=== PATIENT | female | born 1945 ===

== ENCOUNTER 2018-10-23 16:54 | Observation (INO) | payer OTHER, MEDICARE ==
--- NOTE | 2018-10-23 17:20 | EDPHY ---
H & P Stated Complaint: [place] - c/o rt ankle/lt knee/bilat wrist/hands Time Seen by Provider: 10/23/18 17:05 HPI/ROS: Chief Complaint: Ankle pain, knee pain status post fall HPI: 73-year-old woman had a mechanical trip and fall when she did not see a curb when she was walking to a rental car checkout counter. Patient fell landed on her left knee and twisted her right ankle. She did not hit her head. No loss of consciousness. She is complaining primarily of pain and swelling in her right ankle. She has been able to weight bear with her left leg with some pain in her knee cap. No chest pain. No abdominal pain. No other injuries. No hip pain. ROS: 10 systems were reviewed and were negative except those elements noted in the HPI. PMH: Hyperlipidemia, hypertension, hypothyroid Social History: No smoking, no alcohol, no recreational drug use Family History: non-contributory Physical Exam: Gen: Awake, Alert, No Distress HEENT: Nose: no rhinorrhea Eyes: PERRLA, EOMI Mouth: Moist mucosa Neck: Supple, no JVD Chest: nontender, lungs clear to auscultation Heart: S1, S2 normal, no murmur Abd: Soft, non-tender, no guarding Back: no CVA tenderness, no midline tenderness Ext: Upper extremities are unremarkable. Patient has an abrasion over her left patella. She has some patellar tenderness. Full range of motion. No drawer sign. Does have moderate patellar tenderness without swelling. No effusion. Right ankle: Patient has significant swelling over the lateral malleolus and in for malleolar region. No medial tenderness. She has lateral malleolar and in for malleolar tenderness, primarily along the anterior talofibular ligament. No midfoot tenderness. No deformity. Decreased range of motion secondary to pain. Capillary refills less than 2 sec bilaterally. 2+ dorsalis pedis pulses. Skin: no rash Neuro: CN II-XII intact, Sensation grossly intact, Strength 5/5 in bilateral upper and lower extremities - Personal History Current Tetanus Diphtheria and Acellular Pertussis (TDAP): Yes - Medical/Surgical History Other PMH: Pt unable to answer currently Constitutional: Initial Vital Signs Temperature (C) 36.6 C 10/23/18 17:06 Heart Rate 77 10/23/18 17:06 Respiratory Rate 20 10/23/18 17:06 Blood Pressure 161/98 H 10/23/18 17:06 O2 Sat (%) 96 10/23/18 17:06 O2 Delivery Mode Room Air Allergies/Adverse Reactions: azithromycin Allergy (Verified 10/23/18 17:03) levofloxacin [From Levaquin] Allergy (Verified 10/23/18 17:03) Sulfa (Sulfonamide Antibiotics) Allergy (Verified 10/23/18 17:03) Home Medications: Medication Instructions Recorded Aspirin 10/23/18 Atenolol 10/23/18 Atorvastatin Calcium 10/23/18 Levothyroxine 10/23/18 Medical Decision Making - Diagnostics Imaging Results: Imaging Impressions Ankle X-Ray 10/23/18 17:12 Impression: 1. Marked lateral soft tissue swelling. No definite acute fracture. 2. Tiny age indeterminate cortical chip along the anterior lateral process of the calcaneus. Query extensor digitorum brevis avulsion injury. Knee X-Ray 10/23/18 17:12 Impression: Acute nondisplaced patellar fractures; vertical and horizontal fracture planes. ED Course/Re-evaluation: X-rays noted. Patient placed in a left straight leg splint. Right ankles Velcro splint clear she has been given crutches. She has been given copies of her x-rays. Patient is unable to get up on her own or weight bear. Plan will be to discussed with the hospitalist for admission for PT and OT consultation and orthopedic evaluation. Case discussed with Dr. Barber, hospitalist. He will admit the patient to his service for further care. Departure - Departure Disposition: [facility] Inpatient Acute Clinical Impression: Patella fracture, Ankle sprain Condition: Fair Additional Instructions: Apply ice for 15 min of every hour while awake. Take ibuprofen, 600 mg every 8 hr. You may alternate with acetaminophen, 1000 mg every 8 hr. Follow up with orthopedist in 3-4 days for further evaluation. Stand Alone Forms: Airline Excuse, Statement of Treatment
[2018-10-23] MEDS ORDERED: IBUPROFEN 600 MG TAB PO ONE (17:55)
[2018-10-23] MEDS ORDERED: diphenhydrAMINE 25 MG CAP PO PRN (20:44)
[2018-10-23] MEDS ORDERED: POTASSIUM CL 10 MEQ TAB PO SCH (21:00)
[2018-10-23] MEDS ORDERED: ATORVASTATIN CALCIUM 20 MG TAB PO SCH (21:00)
[2018-10-23] MEDS ORDERED: ASPIRIN EC 81 MG TAB PO SCH (21:00)
[2018-10-23] MEDS ORDERED: LEVOTHYROXINE 75 MCG TAB PO SCH (21:00)
[2018-10-23] MEDS ORDERED: ONDANSETRON DISINTEGRATING 4 MG TAB PO PRN (21:08)
[2018-10-23] MEDS ORDERED: IBUPROFEN 200 MG TAB PO PRN (21:08)
[2018-10-23] MEDS ORDERED: ONDANSETRON 4 MG/2 ML VIAL IVP PRN (21:08)
[2018-10-23] MEDS: ACETAMINOPHEN 500 MG TAB PO SCH (22:02)
--- NOTE | 2018-10-23 22:06 | GHP ---
[f rep st] HISTORY AND PHYSICAL DATE OF ADMISSION: 10/23/2018 The patient is a 73-year-old lady with history of hypertension, hyperlipidemia, visiting from [place] . She had a mechanical fall outside [place] at [facility], landing on her knees and twisting her ankle. She [place] [facility] [place] revealed a left patellar fracture and right ankle sprain. She is unable to bear weight and navigate, so she is being admitted for further management. She denies striking h er head, antecedent loss of consciousness, palpitation, shortness of breath, etc. REVIEW OF SYSTEMS: Complete 10-point review of systems conducted and negative except as noted in the HPI. PAST MEDICAL HISTORY: Hypertension, hyperlipidemia, hypothyroidism. ALLERGIES: Azithromycin, levofloxacin, and sulfa. HOME MEDICATIONS: Aspirin, atenolol, atorvastatin, Benadryl q.h.s., levothyroxine, olmesartan/hydroc hlorothiazide, potassium chloride. SOCIAL HISTORY: She lives in [place]. She does not drink alcohol. She has family who live here. FAMILY HISTORY: Reviewed and unremarkable. PHYSICAL EXAMINATION: VITAL SIGNS: Temp 36.9, blood pressure 159/93, pulse 72, breathing 16 times a minute, 99% on room air. GENERAL: In no acute distress. HEENT: Sclerae anicteric. Oropharynx cl ear. Mucous membranes are moist. NECK: Supple. No lymphadenopathy or JVD. LUNGS: Clear to auscu ltation bilaterally. HEART: S1, S2. ABDOMEN: Soft, nontender, nondistended. LOWER EXTREMITIES: Her right ankle is pretty swollen laterally with purpura. Her right leg is in a knee immobilizer. T hey are neurovascularly intact. Knee x-ray interpreted by me of the left knee shows acute nondisplaced patellar fractures, vertical i n horizontal fracture planes. Ankle x-ray interpreted by me shows no fracture or soft tissue injury. There are no labs. I discussed the case with Dr. José Davis and Dr. Mc Valdes. ASSESSMENT AND PLAN: A 73-year-old female with fractures and inability to ambulate. 1. Patellar fracture. By appearance, seems to be slightly complex given the 2 fracture planes. I w ill have Orthopedics see her to see if operative management is in order. I suspect it is not. 2. Ankle sprain. P.r.n. ankle brace. 3. Pain. Scheduled Tylenol, p.r.n. ibuprofen. 4. Functional status. The patient will be seen by PT and OT tomorrow to help her manage so she can hopefully travel back to [place]. 5. Hypertension. Continue her medicines. DISPOSITION: Observation. /[id number]/MODL
[2018-10-23] MEDS ORDERED: ZOLPIDEM TARTRATE 5 MG TAB PO SCH (23:15)
[2018-10-24] MEDS: ACETAMINOPHEN 500 MG TAB PO SCH (05:31)
--- NOTE | 2018-10-24 06:38 | GCON ---
[f rep st] CONSULTATION DATE OF CONSULTATION: 10/24/2018 REASON FOR CONSULTATION: Right ankle, left knee. HISTORY OF PRESENT ILLNESS: This is a 73-year-old community ambulator who is visiting from [place]. She sustained a fall at the rental car agency, twisting her right ankle and landing on her left knee . She noted immediate swelling in her ankle with some difficulty ambulating. She was able to weight bear on her left knee. She denies any previous problems or injuries relative to her right ankle or left knee. She was evaluated in the emergency room and placed in a left knee immobilizer and a right stirrup ankle brace. In those, she has been able to weight bear. PHYSICAL EXAMINATION: Right ankle: She has diffuse swelling and subcutaneous ecchymosis in her righ t ankle. Distal neurovascular exam is intact. She is able to flex and extend, rodolfo and invert agai nst resistance. She has mild tenderness along her lateral ligament complex with minimal medial tende rness. She is nontender over her syndesmosis. External rotation stress is negative for producing pa in. She is nontender throughout her hindfoot or 5th metatarsal base. Left knee: She has diffuse swelling in her left knee with no gross deformity. She is tender along t he anterior aspect of her patella reproducing her pain. Distal neurovascular exam is intact. Her qu adriceps mechanism is intact. IMAGING: AP and lateral radiographs of her right ankle are negative for any fracture or joint diasta sis. The radiographs of her left knee show a very minimally displaced patella fracture with a horizontal a nd vertical component. The radiographs were obtained with the knee flexed, and with the knee flexed the fracture is essentially nondisplaced. ASSESSMENT: 1. Right ankle sprain. 2. Left patella fracture. PLAN: It is recommended that nonoperative treatment be pursued. She will be allowed to be weightbea ring as tolerated on both her right ankle and her left knee utilizing her knee immobilizer on the lef t and her ankle brace on the right. It was recommended that she follow up with an orthopedic surgeon upon return to [place] for repeat radiographs to ensure that no displacement in the left patella fra cture has occurred. /[id number]/MODL
[2018-10-24 07:30] VITALS: BP 143/87
--- NOTE | 2018-10-24 08:59 | HOSPPROG ---
Hospitalist Progress Note Assessment/Plan: The patient is a 73-year-old lady with history of hypertension, hyperlipidemia , visiting from [place]. She had a mechanical fall outside [place] at [facility], landing on her knees and twisting her ankle. She was driven [place] [facility] [place] films revealed a left patellar fracture and right ankle sprain. *Patellar fracture. -appreciate Dr Valdes -knee immobilizer -wbat -follow up w an orthopedic surgeon * Ankle sprain. P.r.n. ankle brace. * Pain. Scheduled Tylenol, p.r.n. ibuprofen. * Hypertension. Continue her medicines. *plan: dc home back to [place] Subjective: Huber has no c/o pain, is mainly frustrated about falling. Objective: Vital Signs Temp Pulse Resp BP Pulse Ox 36.6 C 83 16 143/87 H 92 10/24/18 07:28 10/24/18 07:28 10/24/18 07:28 10/24/18 07:28 10/24/18 07:28 10/23/18 10/24/18 10/25/18 05:59 05:59 05:59 Intake Total 350 Balance 350 - Physical Exam Constitutional: no apparent distress, appears nourished, not in pain Eyes: PERRL Ears, Nose, Mouth, Throat: hearing normal Respiratory: no respiratory distress Skin: warm, other (right ankle w swelling, left knee in immobilizer) Musculoskeletal: generalized weakness Neurologic: AAOx3 Psychiatric: interacting appropriately ICD10 Worksheet Patient Problems: Problems Problem Status Onset Ankle sprain Acute Patella fracture Acute
[2018-10-24] MEDS ORDERED: ATENOLOL 50 MG TAB PO SCH (09:00)
[2018-10-24] MEDS ORDERED: OLMESARTAN MEDOXOMIL 20 MG TAB PO SCH (09:00)
[2018-10-24] MEDS ORDERED: HYDROCHLOROTHIAZIDE 12.5 MG CAP PO SCH (09:00)
--- NOTE | 2018-10-24 11:43 | GDS ---
[f rep st] DISCHARGE SUMMARY DISCHARGE DIAGNOSES: 1. Left patellar fracture. 2. Right ankle sprain. 3. Pain due to this. 4. Hypertension. CONSULTATION: Dr. Valdes. Briefly, the patient is a 73-year-old lady with a history of hypertension and hyperlipidemia. She is here visiting from the [place] area. She had a mechanical fall outside of [place] at [place], landing on h er knee and twisting her ankle. She was driven to [facility] where it was noted she streeter d a left patellar fracture and right ankle sprain. She was seen and evaluated by orthopedic surgeon. The recommendation is for her to be discharged and to follow up with an orthopedic surgeon in the [facility]. DISCHARGE CONDITION: Stable. Blood pressure is 143/87, O2 sats on room air 96%, respiratory rate is 16, pulse is 83, temperature 36.6 Celsius. MEDICATIONS AT DISCHARGE: Please see the EMR. DISCHARGE INSTRUCTIONS: 1. Weightbearing as tolerated. 2. Apply ice for 15 minutes every hour while awake. 3. Take ibuprofen 600 mg every 8 hours. 4. Follow up with orthopedist in 3-4 days. /[id number]/MODL
--- NOTE | 2018-10-24 12:07 | ASMTCMCOM ---
CM Note CM Note Notes: Pts case discussed w/ Citlali Buchanan NP and STEPHAN Minor. Pt is a 73 y/o female admitted for patella fracture and ankle sprain. Pt is visiting her daughter here in [place] - from [place]. Therapies have cleared pt to d/c home without any needs. Pts daughter is here coordinating flight back home to [place]. STEPHAN Blas from trauma is obtaining a letter from [employer] stating that she will need assistance boarding/deboarding plane and may need a wheelchair or walker. No other needs at this time. CM available for changes. Plan: Independent Date Signed: 10/24/2018 12:06 PM Electronically Signed By:DIANN Durand
--- NOTE | 2018-10-24 12:08 | ASMTLACE ---
LACE Length of stay for Answers: 1 day current admission Acuity / Level of Answers: No Care: Did the patient have an inpatient admission? Comorbidities - select Answers: Other Notes: HLD; HTN; Hypothyroid all that apply # of Emergency department Answers: 1-2 visits in the last 6 months Score: 3 Date Signed: 10/24/2018 12:07 PM Electronically Signed By:DIANN Durand
== END 2018-10-24 12:50 | disposition home or self-care (01) ==
LOC: CED 16:54 → UNDOADMOB 18:34 → CEDHOLD 18:34 → F3N 20:04
PROVIDERS: ADMIT Internal Medicine; ATTEND Internal Medicine
DX: S82.092A Other fracture of left patella, initial encounter for closed fracture (principal); S93.401A Sprain of unspecified ligament of right ankle, initial encounter; W10.1XXA Fall (on)(from) sidewalk curb, initial encounter; Y92.520 Airport as the place of occurrence of the external cause; I10 Essential (primary) hypertension; E78.5 Hyperlipidemia, unspecified; E03.9 Hypothyroidism, unspecified; Z88.2 Allergy status to sulfonamides
CPT/HCPCS: 73564; 73610; 97116; 97161; 97166; 97535; 99285; G0378; L1830; L4350